=== PATIENT | male | born 2000 | race Native Hawaiian/Other Pacific Islander ===

== ENCOUNTER 2020-08-10 15:57 | Emergency (ER) | payer SELFPAY ==
[2020-08-10] MEDS ORDERED: IPRATROPIUM/ALBUTEROL SULFATE 3 ML AMPUL.NEB IH ONE ×2 (16:08→18:11)
[2020-08-10] MEDS ORDERED: predniSONE 20 MG TAB PO ONE (16:08)
--- NOTE | 2020-08-10 16:10 | Event Note ---
ED Screening Note Date of service: 08/10/20 Time: 16:09 ED Screening Note: Patient is a 20-year-old male with history of asthma and chronic tobacco abuse who presents to the ED with complaint of acute onset persistent shortness of breath, chest tightness and jitteriness for the last 1 hour. Patient states that he was driving when he started feeling shortness of breath and jitteriness and used his albuterol inhaler which did not help him. Patient states that the symptoms have been persistent and constant. Patient denies dizziness, syncope, chest pain, fever, chills, cough, nausea and vomiting, abdominal pain, sore throat or headache. This initial assessment/diagnostic orders/clinical plan/treatment(s) is/are subject to change based on patients health status, clinical progression and re- assessment by fellow clinical providers in the ED. Further treatment and workup at subsequent clinical providers discretion. Patient/guardian urged not to elope from the ED as their condition may be serious if not clinically assessed and managed. Initial orders include: CBC, CMP, chest x-ray, DuoNeb, prednisone
[2020-08-10 16:43] LABS: Basophils % (Auto) 0.3 % (0.0-1.8); Eosinophils # (Auto) 0.2 K/mm3 (0.0-0.4); Eosinophils % (Auto) 1.8 % (0.0-4.3); Hematocrit 45.3 % (35.5-45.6); Hemoglobin 15.4 gm/dl (11.8-15.2); Lymphocytes # (Auto) 2.9 K/mm3 (1.2-5.4); Lymphocytes % (Auto) 22.2 % (13.4-35.0); Mean Corpuscular HGB Conc 34 % (32-34); Mean Corpuscular Volume 90 fl (84-94); Monocytes # (Auto) 0.8 K/mm3 (0.0-0.8); Monocytes % (Auto) 6.1 % (0.0-7.3); Platelet Count 223 K/mm3 (140-440); Red Blood Count 5.03 M/mm3 (3.65-5.03); Red Cell Distribution Width 13.2 % (13.2-15.2)
[2020-08-10] MEDS ORDERED: hydrOXYzine HCL 25 MG TAB PO ONE (17:00)
[2020-08-10 17:07] LABS: Alanine Aminotransferase 19 units/L (7-56); Albumin 4.8 g/dL (3.9-5); BUN/Creatinine Ratio 19; Blood Urea Nitrogen 15 mg/dL (9-20); Calcium 9.4 mg/dL (8.4-10.2); Hemolysis Index 8
--- NOTE | 2020-08-10 17:18 | XRay Report ---
CHEST 2 VIEWS INDICATION / CLINICAL INFORMATION: dyspnea. COMPARISON: None available. FINDINGS: SUPPORT DEVICES: None. HEART / MEDIASTINUM: No significant abnormality. LUNGS / PLEURA: No significant pulmonary or pleural abnormality. No pneumothorax. ADDITIONAL FINDINGS: No significant additional findings. IMPRESSION: 1. No acute findings. Signer Name: Demarco Cardona MD Signed: 08/10/2020 5:14 PM Workstation Name: [id number]
--- NOTE | 2020-08-10 19:07 | Emergency Department Report ---
ED Shortness of Breath HPI - General Chief Complaint: Dyspnea/Respdistress Stated Complaint: ASTHMA Source: patient Mode of arrival: Ambulatory Limitations: No Limitations - History of Present Illness Initial Comments: Patient is a 20-year-old male with history of asthma and chronic tobacco abuse who presents to the ED with complaint of acute onset persistent shortness of breath, chest tightness and jitteriness for the last 1 hour. Patient states that he was driving when he started feeling shortness of breath and jitteriness and used his albuterol inhaler which did not help him. Patient states that the symptoms have been persistent and constant. Patient denies dizziness, syncope, chest pain, fever, chills, cough, nausea and vomiting, abdominal pain, sore throat or headache. MD Complaint: shortness of breath, cough, "asthma attack", anxiety -: Sudden, hour(s) (1) Severity: severe Pain Scale: 7 Quality: other (Chest tightness) Consistency: constant Improves With: bronchodilators Worsens With: nothing Known History Of: asthma Context: allergen exposure, anxiety Associated Symptoms: chest pain (Chest tightness), cough Treatments Prior to Arrival: bronchodilator - Related Data Home Oxygen Therapy: No Previous Rx's Medication Instructions Recorded Last Taken Type ALBUTEROL NEB's [Proventil 0.083% 3 ml IH Q6H PRN #75 ml 08/10/20 Unknown Rx NEBS] Benzonatate [Tessalon Perles] 100 mg PO Q8HR #30 capsule 08/10/20 Unknown Rx hydrOXYzine HCL [Atarax] 25 mg PO Q6HR PRN #30 tablet 08/10/20 Unknown Rx predniSONE [Deltasone] 40 mg PO QDAY #10 tab 08/10/20 Unknown Rx Allergies Allergy/AdvReac Type Severity Reaction Status Date / Time No Known Allergies Allergy Unverified 08/10/20 16:11 ED Review of Systems ROS: Stated complaint: ASTHMA Other details as noted in HPI Constitutional: denies: chills, fever Eyes: denies: eye pain, eye discharge, vision change ENT: denies: ear pain, throat pain, congestion Respiratory: cough, shortness of breath, wheezing Cardiovascular: denies: chest pain, palpitations Endocrine: no symptoms reported Gastrointestinal: denies: abdominal pain, nausea, diarrhea Genitourinary: denies: urgency, dysuria Musculoskeletal: denies: back pain, joint swelling, arthralgia Skin: denies: rash, lesions Neurological: denies: headache, weakness, paresthesias Psychiatric: anxiety. denies: depression Hematological/Lymphatic: denies: easy bleeding, easy bruising ED Past Medical Hx - Past Medical History Hx Asthma: Yes - Social History Smoking Status: Current Every Day Smoker Substance Use Type: None - Medications Home Medications: Home Medications Medication Instructions Recorded Confirmed Last Taken Type ALBUTEROL NEB's [Proventil 0.083% 3 ml IH Q6H PRN #75 ml 08/10/20 Unknown Rx NEBS] Benzonatate [Tessalon Perles] 100 mg PO Q8HR #30 capsule 08/10/20 Unknown Rx hydrOXYzine HCL [Atarax] 25 mg PO Q6HR PRN #30 tablet 08/10/20 Unknown Rx predniSONE [Deltasone] 40 mg PO QDAY #10 tab 08/10/20 Unknown Rx ED Physical Exam - General Limitations: No Limitations General appearance: alert, in no apparent distress - Head Head exam: Present: atraumatic, normocephalic, normal inspection - Eye Eye exam: Present: normal appearance, PERRL, EOMI Pupils: Present: normal accommodation - ENT ENT exam: Present: normal exam, normal orophraynx, mucous membranes moist, TM's normal bilaterally, normal external ear exam - Neck Neck exam: Present: normal inspection, full ROM - Respiratory Respiratory exam: Present: wheezes (Mildly diffuse coarse wheezes throughout). Absent: respiratory distress, rales, rhonchi, chest wall tenderness, accessory muscle use, prolonged expiratory - Cardiovascular Cardiovascular Exam: Present: regular rate, normal rhythm, normal heart sounds. Absent: systolic murmur, diastolic murmur, rubs, gallop - GI/Abdominal GI/Abdominal exam: Present: soft, normal bowel sounds. Absent: tenderness, guarding, hyperactive bowel sounds, hypoactive bowel sounds - Extremities Exam Extremities exam: Present: normal inspection, full ROM, normal capillary refill - Back Exam Back exam: Present: normal inspection, full ROM. Absent: tenderness, CVA tenderness (R), muscle spasm, paraspinal tenderness, vertebral tenderness - Neurological Exam Neurological exam: Present: alert, oriented X3, CN II-XII intact, normal gait, reflexes normal - Psychiatric Psychiatric exam: Present: normal affect, normal mood, anxious - Skin Skin exam: Present: warm, dry, intact, normal color. Absent: rash ED Course Vital Signs 08/10/20 18:16 Pulse Rate [ 84 Anterior Bilateral Throughout] Respiratory 18 Rate [Anterior Bilateral Throughout] ED Medical Decision Making - Lab Data Result diagrams: 08/10/20 16:31 08/10/20 16:31 - Radiology Data Radiology results: report reviewed, image reviewed [facility] [address] [place] [address] XRay Report Signed Patient: BEN RAO MR#: [id number] : 2000 Acct:[id number] Age/Sex: 20 / M ADM Date: 08/10/20 Loc: ED Attending Dr: Ordering Physician: MELISSA MAN Date of Service: 08/10/20 Procedure(s): XR chest routine 2V Accession Number(s): [id number] cc: MELISSA MAN Fluoro Time In Minutes: CHEST 2 VIEWS INDICATION / CLINICAL INFORMATION: dyspnea. COMPARISON: None available. FINDINGS: SUPPORT DEVICES: None. HEART / MEDIASTINUM: No significant abnormality. LUNGS / PLEURA: No significant pulmonary or pleural abnormality. No pneumothorax. ADDITIONAL FINDINGS: No significant additional findings. IMPRESSION: 1. No acute findings. Signer Name: Demarco Cardona MD Signed: 08/10/2020 5:14 PM Workstation Name: [id number] Transcribed By: Dictated By: DEMARCO CARDONA III Electronically Authenticated By: DEMARCO CARDONA III Signed Date/Time: 08/10/201713 DD/ 12 TD/TT: - Medical Decision Making This is a 20-year-old male with history of asthma and chronic tobacco abuse who presents to the ED with complaint of acute onset persistent shortness of breath, chest tightness and jitteriness for the last 1 hour. Patient states that he was driving when he started feeling shortness of breath and jitteriness and used his albuterol inhaler which did not help him. Patient states that the symptoms have been persistent and constant. Patient denies dizziness, syncope, chest pain, fever, chills, cough, nausea and vomiting, abdominal pain, sore throat or headache. In the ED, patient is alert and oriented x3 and is not in any distress but appears to be anxious during the physical exam. Patient is hemodynamically stable. Chest x-ray showed no acute cardiopulmonary abnormalities or pneumonitis. Patient was treated in the ED with DuoNeb and oral prednisone. On reevaluation, patient felt better, wheezing resolved and patient's oxygen saturation is 98% in room air. Patient was therefore discharged home on medications and advised to follow-up with his primary care physician in 5 to 7 days for reevaluation. Patient was also advised to consider quitting tobacco abuse to improve on his asthma attacks. Patient was otherwise advised return to the ED immediately if symptoms get worse. - Differential Diagnosis Asthma; bronchitis; pneumonia; anxiety Critical care attestation.: If time is entered above; I have spent that time in minutes in the direct care of this critically ill patient, excluding procedure time. ED Disposition Clinical Impression: Shortness of breath, Anxiety as acute reaction to exceptional stress Asthma with acute exacerbation Qualifiers: Asthma severity: unspecified severity Asthma persistence: intermittent Qualified Code(s): J45.21 - Mild intermittent asthma with (acute) exacerbation Disposition: - TO HOME OR SELFCARE Is pt being admited?: No Does the pt Need Aspirin: No Condition: Stable Instructions: Shortness of Breath, Adult, [id number], Cough, Adult, [id number], Asthma, Adult, Zoac-[id number], Generalized Anxiety Disorder, Adult Additional Instructions: Chest x-ray shows no acute cardiopulmonary abnormalities or pneumonitis. Therefore take medications as advised, drink plenty of fluids and follow-up with your primary care physician in 5 to 7 days for reevaluation. Consider quitting tobacco abuse to improve on your symptoms. Prescriptions: hydrOXYzine HCL [Atarax] 25 mg PO Q6HR PRN #30 tablet PRN Reason: Anxiety predniSONE [Deltasone] 40 mg PO QDAY #10 tab ALBUTEROL NEB's [Proventil 0.083% NEBS] 3 ml IH Q6H PRN #75 ml PRN Reason: Wheezing Benzonatate [Tessalon Perles] 100 mg PO Q8HR #30 capsule Referrals: [facility] [Provider Group] - 3-5 Days Time of Disposition: 19:08 Print Language: UZBEK
[2020-08-10 19:50] VITALS: BP 118/76
== END 2020-08-10 19:40 | disposition home or self-care (01) ==
LOC: ED 15:57
DX: J45.901 Unspecified asthma with (acute) exacerbation (principal); R06.02 Shortness of breath; F41.1 Generalized anxiety disorder; F43.0 Acute stress reaction; F17.200 Nicotine dependence, unspecified, uncomplicated; Z79.899 Other long term (current) drug therapy
CPT/HCPCS: 36415; 71046; 80053; 85025; 94640; 99284; J7512; 94644